=== PATIENT | male | born 1985 | race Caucasian/White ===

== ENCOUNTER 2016-07-14 13:06 | Emergency (ER) | payer BC, OTHER ==
[2016-07-14 13:53] VITALS: BP 142/95
--- NOTE | 2016-07-14 14:04 | UC ---
UC General HPI - HPI Summary HPI Summary: sorethroat, sinus congestion fever, bodyaches and chills for 5 days. - History of Current Complaint Chief Complaint: UCRespiratory Stated Complaint: FLU LIKE SYMPTOMS Time Seen by Provider: 07/14/16 13:56 Hx Obtained From: Patient Onset/Duration: Sudden Onset, Lasting Days Timing: Constant Onset Severity: Moderate Current Severity: Severe Pain Intensity: 7 Associated Signs & Symptoms: Positive: Cough, Diaphoresis, Fever, Headache, Weakness - Allergy/Home Medications Allergies/Adverse Reactions: Allergies Allergy/AdvReac Type Severity Reaction Status Date / Time No Known Allergies Allergy Verified 01/02/15 15:15 PMH/Surg Hx/FS Hx/Imm Hx Previously Healthy: Yes Endocrine History Of: Denies: Diabetes, Thyroid Disease Cardiovascular History Of: Denies: Cardiac Disorders, Hypertension Respiratory History Of: Denies: COPD, Asthma GI/ History Of: Denies: Ulcer Neurological History Of: Denies: CVA - Surgical History Surgical History: Yes Surgery Procedure, Year, and Place: ANKLE - Family History Known Family History: Negative: Cardiac Disease, Hypertension - Social History Alcohol Use: Rare Substance Use Type: None Smoking Status (MU): Never Smoked Tobacco Review of Systems Constitutional: Fever, Chills, Fatigue Skin: Negative Eyes: Negative ENT: Sore Throat, Ear Ache, Nasal Discharge Respiratory: Cough Cardiovascular: Negative Gastrointestinal: Negative Genitourinary: Negative Motor: Negative, Decreased ROM Musculoskeletal: Negative, Myalgia Neurological: Headache Psychological: Negative All Other Systems Reviewed And Are Negative: Yes Physical Exam Triage Information Reviewed: Yes Appearance: Well-Nourished, Ill-Appearing, Pain Distress Vital Signs: Initial Vital Signs Temp 100.0 F 07/14/16 13:48 Pulse 111 07/14/16 13:48 Resp 18 07/14/16 13:48 BP 142/95 07/14/16 13:48 Pulse Ox 98 07/14/16 13:48 Vital Signs Reviewed: Yes Eye Exam: Normal Eyes: Positive: Conjunctiva Clear ENT: Positive: Hearing grossly normal, Pharyngeal erythema, Nasal drainage - and epistaxis, TM bulging, TM red Dental Exam: Normal Neck exam: Normal Neck: Positive: Supple, Nontender, No Lymphadenopathy Respiratory Exam: Normal Respiratory: Positive: Chest non-tender, No respiratory distress, No accessory muscle use, Rhonchi, Wheezing, Inspiration Cardiovascular Exam: Normal Cardiovascular: Positive: RRR, No Murmur, Pulses Normal Abdominal Exam: Normal Abdomen Description: Positive: Nontender, No Organomegaly, Soft Bowel Sounds: Positive: Present Musculoskeletal Exam: Normal Musculoskeletal: Positive: Strength Intact, ROM Intact, No Edema Neurological Exam: Normal Psychological Exam: Normal Skin Exam: Normal Course/Dx - Course Course Of Treatment: hx obtained, exam performed, medication reviewed, rapid flu was negative. medication prescribed for wheezing and cough. - Differential Dx - Multi-Symptom Provider Diagnoses: epistaxis. fever. bronchitis Discharge - Discharge Plan Condition: Stable Disposition: HOME Patient Education Materials: Acute Bronchitis (ED) Additional Instructions: Take the medications as prescribed. increase your fluid intake and get plenty of rest. follow up with any increase in symptoms
== END 2016-07-14 14:45 | disposition home or self-care (01) ==
LOC: UCEAST 13:06
DX: J40 Bronchitis, not specified as acute or chronic (principal); R04.0 Epistaxis; R50.9 Fever, unspecified
CPT/HCPCS: 87502; 99212; G0463

== ENCOUNTER 2016-09-02 09:30 | Emergency (ER) | payer BC ==
[2016-09-02] MEDS ORDERED: Albuterol/Ipratropium NEB.SOL* Albuterol 2.5 MG/Ipratropium 0.5 MG 3 ML INH ONE (10:43)
--- NOTE | 2016-09-02 10:43 | UC ---
Throat Pain/Nasal Campbell HPI - HPI Summary HPI Summary: complaint of nasal congestion cough sore throat feels chills and may have had a fever muscle achiness, joint pain denies N/V/D taken some tylenol and homeopathic remedies without relief exposure to influenza recently - History of Current Complaint Chief Complaint: UCRespiratory Stated Complaint: RESP ISSUE Time Seen by Provider: 09/02/16 10:35 Hx Obtained From: Patient - Allergies/Home Medications Allergies/Adverse Reactions: Allergies Allergy/AdvReac Type Severity Reaction Status Date / Time No Known Allergies Allergy Verified 01/02/15 15:15 PMH/Surg Hx/FS Hx/Imm Hx Previously Healthy: Yes Endocrine History Of: Denies: Diabetes, Thyroid Disease Cardiovascular History Of: Denies: Cardiac Disorders, Hypertension Respiratory History Of: Denies: COPD, Asthma GI/ History Of: Denies: Ulcer Neurological History Of: Denies: CVA - Surgical History Surgical History: Yes Surgery Procedure, Year, and Place: [facility] - Family History Known Family History: Negative: Cardiac Disease, Hypertension, Diabetes - Social History Occupation: Employed Full-time Lives: With Family Alcohol Use: Occasionally Substance Use Type: None Smoking Status (MU): Never Smoked Tobacco Review of Systems Constitutional: Fever, Chills, Fatigue Skin: Negative Eyes: Negative ENT: Sore Throat, Nasal Discharge Respiratory: Cough Cardiovascular: Negative Gastrointestinal: Negative Genitourinary: Negative Motor: Negative Neurovascular: Negative Musculoskeletal: Negative Neurological: Negative Psychological: Negative All Other Systems Reviewed And Are Negative: Yes Physical Exam Triage Information Reviewed: Yes Appearance: No Pain Distress, Well-Nourished Vital Signs: Initial Vital Signs Temp 98.6 F 09/02/16 09:43 Pulse 116 09/02/16 09:43 Resp 18 09/02/16 09:43 BP 117/80 09/02/16 09:43 Pulse Ox 96 09/02/16 09:43 Vital Signs Reviewed: Yes Eyes: Positive: Conjunctiva Clear ENT: Positive: Pharyngeal erythema, Nasal congestion, Nasal drainage, TMs normal Neck: Positive: No Lymphadenopathy Respiratory: Positive: No respiratory distress, No accessory muscle use, Wheezing - throughout, Plerual rub Cardiovascular: Positive: No Murmur, Tachycardia Abdomen Description: Positive: Nontender, Soft Bowel Sounds: Positive: Present Musculoskeletal: Positive: No Edema Neurological: Positive: Alert Psychological Exam: Normal Skin Exam: Normal Re-Evaluation - Re-Evaluation First Eval Change: Improved - less wheezing throughout Throat Pain/Nasal Course/Dx - Course Course Of Treatment: exam completed. viral illness- symptomatic treatment. NSAIDS , albuterol for wheezing. slight tachycardia-pt states HR usually 110- discussed importance of increasing fluid intake and reviewed when to seek emergent /followupcare - Differential Dx/Diagnosis Differential Diagnosis/HQI/PQRI: Influenza, URI, Other - bronchitis Provider Diagnoses: viral illness- influenza like Discharge - Discharge Plan Condition: Stable Disposition: HOME Prescriptions: Albuterol HFA INHALER* [Ventolin HFA Inhaler*] 2 puff INH Q4H PRN #1 mdi PRN Reason: Wheezing Patient Education Materials: Acute Bronchitis (ED) Referrals: No Primary Care Phys,NOPCP [Primary Care Provider] - [facility] [place] [facility] [Outside] Additional Instructions: Use your albuterol inhaler every 4-6 hours when needed for wheezing, shortness of breath or uncontrolled coughing. It is extremely important to increase fluids and rest Take acetaminophen or ibuprofen for fever or pain Please review your discharge instructions. If your symptoms do not improve please call your primary care provider or return to urgent care.
[2016-09-02 11:52] VITALS: BP 102/78
== END 2016-09-02 11:50 | disposition home or self-care (01) ==
LOC: UCEAST 09:30
DX: B34.8 Other viral infections of unspecified site (principal); R09.81 Nasal congestion
CPT/HCPCS: 87502; 99212; A9270-GY; G0463

== ENCOUNTER 2016-09-08 16:37 | Emergency (ER) | payer BC | END 2016-09-08 17:31 | disposition left against medical advice (07) | LOC: UCEAST 16:37 | DX: R09.89 Other specified symptoms and signs involving the circulatory and respiratory systems (principal); Z53.21 Procedure and treatment not carried out due to patient leaving prior to being seen by health care provider ==

== ENCOUNTER 2016-09-08 18:01 | Emergency (ER) | payer BC ==
[2016-09-08 19:31] VITALS: BP 121/81
--- NOTE | 2016-09-08 20:05 | UC ---
Respiratory Complaint HPI - HPI Summary HPI Summary: patient dx with bronchitis 2 weeks ago and his cough has gotten worse, SOB on exertion - History of Current Complaint Chief Complaint: UCRespiratory Stated Complaint: CHEST CONGESTION Time Seen by Provider: 09/08/16 19:49 Hx Obtained From: Patient Onset/Duration: Gradual Onset, Lasting Weeks Timing: Constant Severity Initially: Moderate Severity Currently: Severe Character: Cough: Nonproductive Aggravating Factors: Exertion, Deep Breaths, Recumbent Position Alleviating Factors: Nothing Associated Signs And Symptoms: Positive: Dyspnea, Wheezing - Risk Factors Pulmonary Embolism Risk Factors: Negative - Allergies/Home Medications Allergies/Adverse Reactions: Allergies Allergy/AdvReac Type Severity Reaction Status Date / Time No Known Allergies Allergy Verified 01/02/15 15:15 Home Medications: Home Medications Acetaminophen [Eq Acetaminophen] 650 mg PO 09/08/16 [History] PMH/Surg Hx/FS Hx/Imm Hx Previously Healthy: Yes Endocrine History Of: Denies: Diabetes, Thyroid Disease Cardiovascular History Of: Denies: Cardiac Disorders, Hypertension Respiratory History Of: Denies: COPD, Asthma GI/ History Of: Denies: Ulcer Neurological History Of: Denies: CVA - Surgical History Surgical History: Yes Surgery Procedure, Year, and Place: [facility]KLE - Family History Known Family History: Negative: Cardiac Disease, Hypertension, Diabetes - Social History Alcohol Use: Occasionally Substance Use Type: None Smoking Status (MU): Never Smoked Tobacco Review of Systems Constitutional: Negative Skin: Negative Eyes: Negative ENT: Sore Throat Respiratory: Shortness Of Breath, Cough Cardiovascular: Negative Gastrointestinal: Negative Genitourinary: Negative Motor: Negative Neurovascular: Negative Musculoskeletal: Negative Neurological: Negative Psychological: Negative All Other Systems Reviewed And Are Negative: Yes Physical Exam Triage Information Reviewed: Yes Appearance: Well-Nourished, Ill-Appearing, Pain Distress Vital Signs: Initial Vital Signs Temp 98.7 F 09/08/16 19:28 Pulse 130 09/08/16 19:28 Resp 18 09/08/16 19:28 BP 121/81 09/08/16 19:28 Pulse Ox 98 09/08/16 19:28 Vital Signs Reviewed: Yes Eye Exam: Normal Eyes: Positive: Conjunctiva Clear ENT: Positive: Pharyngeal erythema, TMs normal Dental Exam: Normal Neck exam: Normal Neck: Positive: Supple, Nontender, No Lymphadenopathy Respiratory: Positive: Chest non-tender, No respiratory distress, No accessory muscle use, Decreased breath sounds, Wheezing Cardiovascular Exam: Normal Cardiovascular: Positive: RRR, No Murmur, Pulses Normal Abdominal Exam: Normal Abdomen Description: Positive: Nontender, No Organomegaly, Soft Bowel Sounds: Positive: Present Musculoskeletal Exam: Normal Musculoskeletal: Positive: Strength Intact, ROM Intact, No Edema Neurological Exam: Normal Neurological: Positive: Alert, Muscle Tone Normal Psychological Exam: Normal Skin Exam: Normal UC Diagnostic Evaluation - Laboratory O2 Sat by Pulse Oximetry: 98 Respiratory Course/Dx - Course Course Of Treatment: hx obtained, exam performed, meds reviewed, chest xray obtained shows conolidation in right lung, treated for pnuemonia and advised to follow up for repeat imaging in 4-6 weeks - Differential Dx/Diagnosis Differential Diagnosis/HQI/PQRI: Asthma, Bronchitis, Influenza, Lower Resp Infection, Sinusitis Provider Diagnoses: lower respiratory infection. cough Discharge - Discharge Plan Condition: Stable Disposition: HOME Prescriptions: DOXYcycline CAP(*) [DOXYcycline 100MG CAP(*)] 100 mg PO BID #19 cap predniSONE TAB* [Deltasone TAB*] 40 mg PO DAILY #10 tab Patient Education Materials: Bacterial Pneumonia (ED) Additional Instructions: 1. take the antibiotic as prescribed. 2. Take the prednisone as prescribed 3. Increase fluid intake 4. take frequent deep breaths throughout the day 5. Follow up with any increased respiratory symptoms.
--- NOTE | 2016-09-08 20:30 | RAD ---
INDICATION: Cough x1 week COMPARISON: None TECHNIQUE: PA and lateral views of the chest were obtained. FINDINGS: The heart and mediastinum are normal in size and contour. The lungs are grossly clear. There is blunting of the right costophrenic angle seen on the AP and lateral view. Visualized bones are normal for the patient's age. There is no radiographic evidence of free air beneath the diaphragm IMPRESSION: BLUNTING OF THE RIGHT COSTOPHRENIC ANGLE COULD BE SEEN IN THE SETTING OF TINY PLEURAL EFFUSION OR OTHER CONSOLIDATION AT THE INFERIOR MOST PORTION OF THE RIGHT LUNG.
[2016-09-08] MEDS ORDERED: Levalbuterol 0.63MG/3ML NEB INH ONE (20:37)
[2016-09-08] MEDS ORDERED: DOXYcycline CAP(*) 100 MG PO ONE (20:37)
== END 2016-09-08 21:19 | disposition home or self-care (01) ==
LOC: UCEAST 18:01
DX: J22 Unspecified acute lower respiratory infection (principal); R05 Cough
CPT/HCPCS: 71020; 99212; A9270-GY; G0463

== ENCOUNTER 2016-09-29 07:03 | Emergency (ER) | payer BC ==
[2016-09-29 07:17] VITALS: BP 145/79
[2016-09-29] MEDS ORDERED: Lidocaine 2% VISCOUS* 15 ML UDC PO ONE (08:04)
--- NOTE | 2016-09-29 08:11 | UC ---
Latoya Still Salem, scribed for Lois Mijares MD on 09/29/16 at 0756 . FLU HPI - HPI Summary HPI Summary: Patient is a 31 y/o male who presents to the with influenza-like sx since 4 days ago. HE reports congestion, weakness, trouble sleeping and eating, a sore throat, and nausea this morning, but denies fever. Pt with cough with green phlegm. He states he took Tylenol with alleviation of myalgias but no other OTC products. He also states that he did not receive a flu shot this year. Pt is on no medication and has no known drug allergy. 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 Pt was in the UC previously on 09/08 and given abx for PNA. States these sx improved. Patients medication reviewed this visit. - History of Current Complaint Chief Complaint: UCGeneralIllness Stated Complaint: HOMER,COUGH,CHILLS Time Seen by Provider: 09/29/16 07:04 Hx Obtained From: Patient Onset/Duration: Gradual Onset, Lasting Days, Still Present Severity Currently: Moderate Severity Initially: Moderate Associated Signs & Symptoms: Positive: Myalgia, Sore Throat, Nasal Congestion. Negative: Fever - Allergy/Home Medications Allergies/Adverse Reactions: Allergies Allergy/AdvReac Type Severity Reaction Status Date / Time No Known Allergies Allergy Verified 01/02/15 15:15 PMH/Surg Hx/FS Hx/Imm Hx Previously Healthy: Yes Endocrine History Of: Denies: Diabetes, Thyroid Disease Cardiovascular History Of: Denies: Cardiac Disorders, Hypertension Respiratory History Of: Reports: Pneumonia - 09/08/16 Denies: COPD, Asthma GI/ History Of: Denies: Ulcer Neurological History Of: Denies: CVA - Surgical History Surgical History: None Surgery Procedure, Year, and Place: ANKLE - Family History Known Family History: Negative: Cardiac Disease, Hypertension, Diabetes - Social History Occupation: Employed Full-time Alcohol Use: Occasionally Substance Use Type: None Smoking Status (MU): Never Smoked Tobacco - Immunization History Most Recent Influenza Vaccination: 2015 Review of Systems Constitutional: Fatigue, Other - No fever. Trouble sleeping and eating. Skin: Negative Eyes: Negative ENT: Sore Throat, Other - Nasal congestion. Respiratory: Negative Cardiovascular: Negative Gastrointestinal: Other - Nausea. Motor: Negative Neurovascular: Negative Musculoskeletal: Negative Neurological: Negative Psychological: Negative All Other Systems Reviewed And Are Negative: Yes Physical Exam Triage Information Reviewed: Yes Appearance: Well-Appearing, No Pain Distress, Well-Nourished Vital Signs: Initial Vital Signs Temp 98.6 F 09/29/16 07:11 Pulse 61 09/29/16 07:11 Resp 18 09/29/16 07:11 BP 145/79 09/29/16 07:11 Pulse Ox 97 09/29/16 07:11 Vital Signs Reviewed: Yes Eye Exam: Normal Eyes: Positive: Conjunctiva Clear, Conjunctiva Inflamed ENT: Positive: Hearing grossly normal - turbinates inflammed and boggy + PND No erythema, exudate, Pharyngeal erythema, Nasal congestion, TMs normal Neck exam: Normal Neck: Positive: Supple, Nontender, No Lymphadenopathy Respiratory Exam: Normal Respiratory: Positive: Chest non-tender, Lungs clear, Normal breath sounds, No respiratory distress, No accessory muscle use Cardiovascular Exam: Normal Cardiovascular: Positive: RRR, No Murmur Abdominal Exam: Normal Abdomen Description: Positive: Nontender, No Organomegaly, Soft Bowel Sounds: Positive: Present Musculoskeletal Exam: Normal Musculoskeletal: Positive: Strength Intact Neurological Exam: Normal Neurological: Positive: Alert, Muscle Tone Normal Psychological Exam: Normal Skin Exam: Normal Re-Evaluation - Re-Evaluation First Eval Re-Evaluation Time: 08:26 Comment: viscous lidocaine helped pt discomfort. reviewed neg strep and flu with pt. will discharge home with Rx lidocaine, flonase. reviewed secretion hygeine. work note. OTC decongestant Flu Course/Dx - Course Course Of Treatment: Blood pressure noted and patient informed to follow up with PCP in 7-10 days. Pt presents with head congestion, PND, sore throat and fatigue since Wednesday after exposed to other with same. Pt has taken APAP with mod relief. Exam reveals nasal congestion with PND. Will check for flu and strep. viscous lidocaine. anticipate discharge - Differential Dx/Diagnosis Provider Diagnoses: URI Discharge - Discharge Plan Condition: Stable Disposition: HOME Referrals: No Primary Care Phys,NOPCP [Primary Care Provider] - Additional Instructions: - Stay well hydrated. Drink plenty of non-alcoholic, non-caffinated beverages. - Gargle with warm, salt water 2-3 times a day to help soothe your throate - Cold beverages may be soothing to your throat - popsicles, apple sauce, jello - USe nasal spray as instructed. Okay to use throat numbing medication as prescribed. - Alternate ibuprofen (Advil, Motrin) 600mg and Tylenol every 3 hours for pain or fever. Take with food. Do NOT take for more than 4-5 days - It is recommended you take a decongestant such as Claritin-D, Zo-D, sudafed. - These infections are spread by secretions - do NOT share eating or drinking utensils - clean items you share with other people such as cell phones, computer mouse, TV remote, computer tablets, etc. Once you start to feel better , change your toothbrush and your pillowcase The documentation as recorded by the Latoya sánchez Salem accurately reflects the service I personally performed and the decisions made by me, Lois Mijares MD.
== END 2016-09-29 08:42 | disposition home or self-care (01) ==
LOC: UCEAST 07:03
DX: J06.9 Acute upper respiratory infection, unspecified (principal); Z87.01 Personal history of pneumonia (recurrent)
CPT/HCPCS: 87502; 87651; 99212; G0463